=== PATIENT | female | born 1995 | race Caucasian/White ===

== ENCOUNTER → 2023-05-09 | Outpatient (CLI) | payer MEDICARE, OTHER ==
[2023-05-09 16:12] VITALS: BP 118/87; PULSE 102; TEMP 98.2; BMI 70.2
--- NOTE | 2023-05-09 16:27 | P.HPBAR ---
Bariatric H&P - History & Physicial H&P Date: 05/09/23 History & Physicial: Visit/CC: new patient Patient initial contact: Initial weight: Initial weight in pounds: Height: 5 ft 5 in Initial BMI: Last weight: Current weight: 191.371 kg Current weight in pounds: 421.90 Current BMI: 70.2 Mcdavid body weight (based on NIH guidelines): 56.699 kg Excess body weight loss: The patient is a 28 year-old F who presents for Bariatric Assessment. DATE OF SERVICE: 05/09/23 REASON FOR CONSULTATION: Initial bariatric evaluation. HISTORY OF PRESENT ILLNESS: Nano Dodd is a 28-year-old female who comes with lifelong morbid obesity. She comes in looking into the gastric bypass. She was at [facility]. She wants to lose weight. She lost 60 pounds at [facility] and was scheduled for surgery and stopped due COVID. She has lost vision in her eye. She was living in [facility] and moved to the [facility]. Her highest weight is 450 pounds and down to 380 pounds 3 years ago. She is starting all over. She presents for the first time in consultation for weight loss management. At height of 5 feet 5 inches, her ideal body weight is 149 pounds. She comes in 422 pounds. Her body mass index is 70.2. Her highest weight is 450 pounds and body mass index 75.0. She is 273 pounds overweight. PAST MEDICAL HISTORY: 1. Morbid obesity due to excess calories 2. Body mass index of 70.2 3. Osteoarthritis of the knees. 4. Osteoarthritis of the lower back. 5. Depressive disorder PAST SURGICAL HISTORY: 1. Bilateral eye surgeries HOME MEDICATIONS: Home Medications Medication Instructions Recorded Confirmed Ibuprofen [Motrin] 800 mg PO Q8H PRN 05/09/23 05/09/23 Vilazodone HCl 20 mg PO DAILY 05/09/23 05/09/23 ALLERGIES: Allergies Allergy/AdvReac Type Severity Reaction Status Date / Time duloxetine AdvReac Unknown Verified 05/09/23 16:00 SOCIAL HISTORY: Past tobacco use. FAMILY HISTORY: No family history of ulcerative colitis disease or Crohn's disease. Family history of morbid obesity. No lupus in the family. No reports of stomach or esophageal cancer. REVIEW OF ORGAN SYSTEMS: CONSTITUTIONAL: At height of 5 feet 5 inches, her ideal body weight is 149 pounds. She comes in 422 pounds. Her body mass index is 70.2. Her highest weight is 450 pounds and body mass index 75.0. She is 273 pounds overweight. HEENT: Denies any active troubles with vision or hearing. ENDOCRINE: Denies diabetes. No hypothyroidism. CARDIOVASCULAR: Denies past reports of palpitations or heart attacks or chest pain. Has hypertensive heart disease. RESPIRATORY: Has daytime somnolence. Has asthma. Denies chronic obstructive pulmonary disease. GASTROINTESTINAL: Denies any bright red blood per rectum. No diarrhea. No constipation. Has gastroesophageal reflux disease. GENITOURINARY: Denies bladder urgency. No recent blood in urine MUSCULOSKELETAL: Has lower back pain and joint pain. Has osteoarthritis of the knees. History of bilateral lower extremity edema. NEURO: No headaches. No seizure disorders. PSYCH: Has depression. No suicidal ideation. RHEUMATOLOGIC: No lupus. No rheumatoid arthritis. HEMATOLOGIC: Denies any abnormal bleeding or bruising. SKIN: No rash. No skin cancer. PHYSICAL EXAM: VITAL SIGNS: Height 5 foot 5 inches, weight 422 pounds. BMI 70.2 Vital Signs Temp 98.2 F 05/09/23 15:57 Pulse 102 H 05/09/23 15:57 Resp BP 118/87 05/09/23 16:10 Pulse Ox FiO2 GENERAL: Well-developed in no acute distress. HEENT: No scleral icterus. Extraocular movements grossly intact. Hears conversational speech. No nasal drainage. NECK: Supple without lymphadenopathy. CHEST: Nonlabored respirations with equal bilateral excursions. CARDIOVASCULAR: Tachycardic. Distal 2+ pulses. ABDOMEN: Obese, soft, nontender, nondistended. MUSCULOSKELETAL: No clubbing, cyanosis. Gross strength 5/5 distal lower extremities. NEURO: No focal or lateralizing signs. Cranial nerves 2 through 12 grossly within normal limits. PSYCH: Appropriate affect. Alert and oriented to person, place and time. SKIN: Good skin turgor. Well perfused. ASSESSMENT: 1. Morbid obesity due to excess calories 2. Body mass index of 70.2 3. Osteoarthritis of the knees. 4. Osteoarthritis of the lower back. 5. Depressive disorder PLAN: 1. Surgical options including band, gastric bypass, sleeve gastrectomy were described in detail. Alternatives such as gastric balloon including duodenal switch were described. She is looking into the gastric bypass. 2. The [place] [facility]ariat[facility] surgical collaborative data and outcomes available 3. Recommend a bariatric metabolic panel to evaluate for micro- including macronutrient deficiencies. 4. For history of daytime somnolence, recommend evaluation and treatment for sleep apnea. 5. Dietary surveillance and counseling was reviewed. Increased protein intake over 65 grams daily advised. 6. Will need cardiac risk assessment. 7. Recommend medical risk assessment. 8. Psych assessment per insurance guidelines. 9. Recommend upper endoscopy. 10. Recommend 12-lead EKG. 11. Recommend esophagram 12. Recommend full urine metabolites testing Thank you for this consultation. Past Medical History Past Medical History: Osteoarthritis (OA) Additional Past Medical History / Comment(s): keratoconus irma eyes, SOB with activity History of Any Multi-Drug Resistant Organisms: None Reported Additional Past Surgical History / Comment(s): eye surgeries x 2 right eye, 1 left eye Past Anesthesia/Blood Transfusion Reactions: No Reported Reaction Additional Past Anesthesia/Blood Transfusion Reaction / Comm: woke up upset after first eye surgery Smoking Status: Former smoker Surgical - Exam Vital Signs Temp Pulse BP 98.2 F 102 H 169/105 05/09/23 15:57 05/09/23 15:57 05/09/23 15:57 Bariatric Checklist Checklist: Plan: Checklist: EGD: 1. Hiatal hernia: 2. H. Pylori: HgbA1c: Vitamin D: Smoking: Primary care physician referral: Dr. Russell Psychiatry clearance: Cardiology clearance: Sleep study: Diet journal: VTE risk score: VTE risk level: Rehab needs at discharge:
== END ==
LOC: BARWHC3 14:59
PROVIDERS: ATTEND Surgery Plastic and Reconstructive Surgery
DX: E66.01 Morbid (severe) obesity due to excess calories (principal); M17.0 Bilateral primary osteoarthritis of knee; M47.816 Spondylosis without myelopathy or radiculopathy, lumbar region; F32.A Depression, unspecified; Z68.45 Body mass index [BMI] 70 or greater, adult; Z88.8 Allergy status to other drugs, medicaments and biological substances; Z87.891 Personal history of nicotine dependence
CPT/HCPCS: 99202

== ENCOUNTER → 2023-06-01 | Outpatient (CLI) | payer OTHER ==
[2023-06-01 10:13] LABS: INR 0.9 (<1.2); Partial Thromboplastin Time 28.9 sec (22.0-30.0); Prothrombin Time 10.1 sec (10.0-12.5)
[2023-06-01 16:03] LABS: HCT 36.4 % (37.2-46.3); HGB 11.4 g/dL (12.0-15.0); MCH 25.2 pg (27.0-32.0); MCHC 31.3 g/dL (32.0-37.0); MCV 80.5 FL (80.0-97.0); Mean Platelet Volume 9.1 FL (9.5-12.2); NRBC Per 100 WBC 0 X 10*3/uL (0.00-0.01); Platelet Count 439 X 10*3/uL (140-440); RBC 4.52 X 10*6/uL (4.10-5.20); RDW 14.2 % (11.5-14.5); WBC 7.51 X 10*3/uL (4.50-10.00)
[2023-06-01 16:34] LABS: Prealbumin 16.3 mg/dL (18.0-42.0)
[2023-06-01 16:46] LABS: % Iron Saturation 12.61 (12.00-45.00); ALT 21 U/L (8-44); AST 14 U/L (13-35); Albumin 4.2 g/dL (3.8-4.9); Albumin/Globulin Ratio 1.56 Ratio (1.60-3.17); Alkaline Phosphatase 65 U/L (41-126); Blood Urea Nitrogen 16.2 mg/dL (9.0-27.0); Calcium 9.8 mg/dL (8.7-10.3); Carbon Dioxide 21.3 mmol/L (21.6-31.8); Chloride 102 mmol/L (96-109); Chol/HDL Ratio 2.97 Ratio; Ferritin 37.7 ng/mL (10.0-291.0); Globulin 2.7 g/dL (1.6-3.3); Glucose 88 mg/dL (70-110); Iron 45 UG/DL (50-170); LDL Cholesterol,Calculated 60.2 mg/dL (0.0-131.0); Magnesium 1.8 mg/dL (1.5-2.4); Phosphorus 3.5 mg/dL (2.4-5.1); Potassium 4.3 mmol/L (3.5-5.5); Sodium 136 mmol/L (135-145); Total Bilirubin 0.6 mg/dL (0.3-1.2); Total Iron Binding Capacity 357 UG/DL (228-460); Total Protein 6.9 g/dL (6.2-8.2); VLDL Calculation 14.74 mg/dL (5.00-40.00)
== END | disposition home or self-care (01) ==
LOC: LABWHC1 08:59
PROVIDERS: ATTEND Surgery Plastic and Reconstructive Surgery
DX: E66.01 Morbid (severe) obesity due to excess calories (principal); E89.1 Postprocedural hypoinsulinemia; D50.8 Other iron deficiency anemias; K91.2 Postsurgical malabsorption, not elsewhere classified; E44.0 Moderate protein-calorie malnutrition; E44.1 Mild protein-calorie malnutrition; E45 Retarded development following protein-calorie malnutrition; E46 Unspecified protein-calorie malnutrition; E55.9 Vitamin D deficiency, unspecified; K74.1 Hepatic sclerosis; N19 Unspecified kidney failure; T56.894A Toxic effect of other metals, undetermined, initial encounter; K50.90 Crohn's disease, unspecified, without complications; I45.10 Unspecified right bundle-branch block
CPT/HCPCS: 84255; 84134; 84425; 80061; 80053; 82607; 82728; 82525; 82746; 83540; 83550; 83735; 84100; 84443; 84590; 84630; 85027; 85610; 85730; 82306; 83970; 83036; 80307; 93005; G0480; 80323

== ENCOUNTER 2023-06-18 07:26 | Day surgery (SDC) | payer OTHER ==
--- NOTE | 2023-06-18 07:33 | P.GSHP ---
History of Present Illness H&P Date: 06/18/23 CHIEF COMPLAINT: GERD HISTORY OF PRESENT ILLNESS: The patient is a 28-year-old female who presents reports gastroesophageal reflux disease. Upper endoscopy was offered for further evaluation and management. PAST MEDICAL HISTORY: Please see list. PAST SURGICAL HISTORY: Please see list. MEDICATIONS: Please see list. ALLERGIES: Please see list. SOCIAL HISTORY: No illicit drug use FAMILY HISTORY: No reports of Crohn disease or ulcerative colitis. REVIEW OF ORGAN SYSTEMS: CONSTITUTIONAL: No reports of fevers or chills. GI: Denies any blood in stools or constipation. PHYSICAL EXAM: VITAL SIGNS: Stable GENERAL: Well-developed and pleasant in no acute distress. HEENT: No scleral icterus. Extraocular movements grossly intact. Moist buccal mucosa. NECK: Supple without lymphadenopathy. CHEST: Unlabored respirations. Equal bilateral excursions. CARDIOVASCULAR: Regular rate and rhythm. Distal 2+ pulses. ABDOMEN: Soft, nondistended. MUSCULOSKELETAL: No clubbing, cyanosis, or edema. ASSESSMENT: 1. Gastroesophageal reflux disease PLAN: 1. Recommend proceeding with an upper endoscopy Past Medical History Past Medical History: Osteoarthritis (OA) Additional Past Medical History / Comment(s): keratoconus irma eyes, SOB with activity History of Any Multi-Drug Resistant Organisms: None Reported Additional Past Surgical History / Comment(s): eye surgeries x 2 right eye, 1 left eye. CORNEAL TRANSPLANT. BLURRED VISION IN RIGHT EYE. Past Anesthesia/Blood Transfusion Reactions: No Reported Reaction Additional Past Anesthesia/Blood Transfusion Reaction / Comment(s): woke up upset after first eye surgery Past Psychological History: Anxiety, Bipolar, Depression, PTSD Smoking Status: Former smoker Past Alcohol Use History: None Reported Past Drug Use History: None Reported Medications and Allergies Home Medications Medication Instructions Recorded Confirmed Type Ibuprofen [Motrin] 800 mg PO Q8H PRN 05/09/23 06/14/23 History Semaglutide [Wegovy] 0.25 mg SQ FR 06/14/23 06/14/23 History Allergies Allergy/AdvReac Type Severity Reaction Status Date / Time duloxetine AdvReac Unknown Verified 06/14/23 09:13
[2023-06-18 08:02] VITALS: TEMP 97.1
[2023-06-18] MEDS ORDERED: LIDOCAINE 1% INJ 10MG/ML (20 ML MDV) ONE (08:04)
[2023-06-18] MEDS ORDERED: KETAMINE HCL IN 0.9 % NACL 50 MG/5 ML SYRINGE ONE (08:04)
[2023-06-18] MEDS ORDERED: PROPOFOL 10 MG/ML 20 ML VIAL IV ONE (08:04)
[2023-06-18] MEDS ORDERED: MIDAZOLAM 2 MG/2 ML VIAL ONE (08:04)
[2023-06-18 08:05] LABS: Glucose,Whole Blood 84 mg/dL (70-110)
[2023-06-18] MEDS: LACTATED RINGERS 1,000 ML IV SCH (08:05)
--- NOTE | 2023-06-18 08:25 | P.PCN ---
Date of Procedure: 06/18/23 Description of Procedure: PREOPERATIVE DIAGNOSIS: Gastroesophageal reflux disease. Morbid obesity. POSTOPERATIVE DIAGNOSIS: Gastroesophageal reflux disease. Morbid obesity. Gastritis. Gastroparesis OPERATION: Esophagogastroduodenoscopy with biopsies along the esophagus, antrum and duodenum SURGEON: Kia Hines MD ANESTHESIA: MAC. INDICATIONS: The patient is a 28-year-old female who presents with reflux disease. Benefits and risks of the procedure were described. Informed consent was obtained. DESCRIPTION: The patient was brought into the endoscopy suite and laid in the left lateral decubitus position. An Olympus gastroscope was passed along the posterior oropharynx down to the distal esophagus where the squamocolumnar junction was encountered at 37 cm from the incisors. The stomach was entered and no bile reflux was found. Additional findings are listed below. Biopsies with cold f orceps were obtained of the antrum. The first through third portion of the duodenum was examined. Retroflexion of the scope confirmed Hill grade 1 lower esophageal valve. The squamocolumnar junction demonstrated LA grade B erosive esophagitis. The stomach was desufflated. The patient tolerated the procedure well. FINDINGS: Squamocolumnar junction 38 cm from the incisors. Diaphragmatic hiatus at 38 cm. Hill grade 1 lower esophageal valve. LA grade B erosive esophagitis. Biopsies obtained Biopsies obtained of the duodenum. Chronic gastritis with biopsies obtained. Retained food within the stomach, gastroparesis RECOMMENDATIONS: Upper endoscopy as needed. She is on with [facility], recommend discontinuing medication one week prior to weight loss surgery Plan - Discharge Summary Discharge Rx Participant: No New Discharge Prescriptions: Continue Ibuprofen [Motrin] 800 mg PO Q8H PRN PRN Reason: Pain Semaglutide [Wegovy] 0.25 mg SQ FR Discharge Medication List Ibuprofen [Motrin] 800 mg PO Q8H PRN 05/09/23 [History] Semaglutide [Wegovy] 0.25 mg SQ FR 06/14/23 [History] [facility]Ref[facility] [place] [facility] Patient Instructions/Handouts: GERD (Gastroesophageal Reflux Disease) (DC) Discharge Disposition: HOME SELF-CARE
[2023-06-18 08:36] VITALS: RESP 16
[2023-06-18 09:09] VITALS: BP 125/88; PULSE 65
== END 2023-06-18 09:06 | disposition home or self-care (01) ==
LOC: ORWHC2ENDO 07:26
PROVIDERS: ATTEND Surgery Plastic and Reconstructive Surgery
DX: K29.50 Unspecified chronic gastritis without bleeding (principal); K21.00 Gastro-esophageal reflux disease with esophagitis, without bleeding; K31.84 Gastroparesis; E66.01 Morbid (severe) obesity due to excess calories; F31.9 Bipolar disorder, unspecified; F41.9 Anxiety disorder, unspecified; F43.10 Post-traumatic stress disorder, unspecified; M19.90 Unspecified osteoarthritis, unspecified site; Z87.891 Personal history of nicotine dependence; Z88.8 Allergy status to other drugs, medicaments and biological substances; Z79.899 Other long term (current) drug therapy
CPT/HCPCS: 81025; 43239; J2250; J2001; J2704; 88305

== ENCOUNTER → 2023-07-02 | Outpatient (CLI) | payer OTHER ==
[2023-07-02 14:52] VITALS: BMI 68.5
== END | disposition home or self-care (01) ==
LOC: BARWHC3 11:52
PROVIDERS: ATTEND Surgery Plastic and Reconstructive Surgery
DX: E66.01 Morbid (severe) obesity due to excess calories (principal); Z71.3 Dietary counseling and surveillance; Z88.5 Allergy status to narcotic agent
CPT/HCPCS: 97804; G0463; 99211

== ENCOUNTER → 2023-07-04 | Outpatient (CLI) | payer OTHER | END | disposition home or self-care (01) | LOC: LABPAT 14:43 | PROVIDERS: ATTEND Surgery Plastic and Reconstructive Surgery | DX: Z01.818 Encounter for other preprocedural examination (principal); I44.0 Atrioventricular block, first degree; I45.10 Unspecified right bundle-branch block | CPT/HCPCS: 93005 ==

== ENCOUNTER → 2023-08-28 | Outpatient (CLI) | payer OTHER ==
--- NOTE | 2023-08-29 07:30 | CA ---
Transthoracic Echo Report Name: Nano Dodd Age: 28 Gender: F : 1995 Exam Date: 08/28/2023 17:09 Exam Location: [place] [facility] Ht (in): 65 Wt (lb): 401 Ordering Physician: Frederick Wills DO ([email or web address]) Attending/Referring Phys: Katherine Farr [facility] Social Sciences Department Chair Neda Tompkins RDCS Procedure CPT: Indications: abnormal EKG R94.31 Cardiac Hx: Technical Quality: Poor Contrast 1: Total Dose (mL): Contrast 2: Total Dose (mL): MEASUREMENTS (Male / Female) Normal Values 2D ECHO LV Diastolic Diameter PLAX 4.7 cm 4.2 - 5.9 / 3.9 - 5.3 cm LV Systolic Diameter PLAX 3.1 cm IVS Diastolic Thickness 1.5 cm 0.6 - 1.0 / 0.6 - 0.9 cm LVPW Diastolic Thickness 1.4 cm 0.6 - 1.0 / 0.6 - 0.9 cm LV Relative Wall Thickness 0.6 RV Internal Dim ED PLAX 2.8 cm LA Systolic Diameter LX 3.5 cm 3.0 - 4.0 / 2.7 - 3.8 cm M-MODE Aortic Root Diameter MM 3.2 cm MV E Point Septal Separation 0.5 cm DOPPLER AV Peak Velocity 130.1 cm/s AV Peak Gradient 6.8 mmHg MV Area PHT 3.2 cm??? Mitral E Point Velocity 85.4 cm/s Mitral A Point Velocity 70.6 cm/s Mitral E to A Ratio 1.2 MV Deceleration Time 240.1 ms TR Peak Velocity 251.8 cm/s TR Peak Gradient 25.4 mmHg Right Ventricular Systolic Press 29.4 mmHg FINDINGS Left Ventricle Left ventricular ejection fraction is estimated at 55-60 %. Left ventricular cavity size normal. Moderately increased septal wall thickness. Moderately increased posterior wall thickness. Normal left ventricular wall motion. Right Ventricle Normal right ventricular size and function. Right ventricular systolic pressure within normal limits. Right Atrium Normal right atrial size. No spontaneous contrast in the right atrium. Left Atrium Normal left atrial size. No left atrial thrombus or mass present. No spontaneous echo contrast seen in the left atrium. Mitral Valve Structurally normal mitral valve. No mitral stenosis, regurgitation or prolapse. Aortic Valve Trileaflet aortic valve. No aortic valve stenosis or regurgitation. Tricuspid Valve Structurally normal tricuspid valve. No tricuspid prolapse. No tricuspid stenosis. Mild tricuspid regurgitation. Pulmonic Valve Pulmonic valve not well visualized. No pulmonic regurgitation. Pericardium No pericardial effusion. No pleural effusion. Aorta Normal size aortic root and proximal ascending aorta. CONCLUSIONS Technically very difficult study for interpretation was poorly visualized endocardial and poorly visualized intracardiac valves Normal LV systolic function Previewed by: Dr. Tom Lowe MD (Electronically Signed) Final Date: 29 Aug 2023 07:30
== END | disposition home or self-care (01) ==
LOC: RADECHMAIN 16:23
PROVIDERS: ATTEND Internal Medicine
DX: Z01.810 Encounter for preprocedural cardiovascular examination (principal); R94.31 Abnormal electrocardiogram [ECG] [EKG]
CPT/HCPCS: 93306

== ENCOUNTER → 2023-09-19 | Outpatient (CLI) | payer OTHER ==
--- NOTE | 2023-09-19 16:20 | P.BASOAP ---
Subjective Progress Note Date: 09/19/23 She has lost weigh with [facility] weight loss since April. Plan for 20 pound weight loss. Okay to take medication next sunday. 2 week diet described. Consent signed Objective - Vital Signs Vital signs: Vital Signs Temp 98 F 09/19/23 15:44 Pulse 76 09/19/23 15:44 Resp 16 09/19/23 15:44 BP 143/87 09/19/23 15:44 Pulse Ox FiO2 Intake & Output 09/18/23 09/19/23 09/19/23 18:59 06:59 18:59 Weight 176.901 kg Assessment/Plan Plan: Date: 09/19/23 Initial Weight: 191.218 kg Initial BMI: 70.1 Current Weight: 176.901 kg Current BMI: 64.9 Type of Surgery: Total Volume in Band: Previous Volume: Volume Removed: Volume Added: Band Size:
[2023-09-19 16:25] VITALS: BP 143/87; PULSE 76; RESP 16; TEMP 98; BMI 64.9
== END ==
LOC: BARWHC3 15:26
PROVIDERS: ATTEND Surgery Plastic and Reconstructive Surgery
DX: E66.01 Morbid (severe) obesity due to excess calories (principal); Z87.891 Personal history of nicotine dependence; Z88.8 Allergy status to other drugs, medicaments and biological substances; Z68.44 Body mass index [BMI] 60.0-69.9, adult
CPT/HCPCS: 99211

== ENCOUNTER → 2023-09-27 | Outpatient (CLI) | payer OTHER ==
[2023-09-27 18:05] LABS: Basophils # (A) 0.04 X 10*3/uL (0.00-0.10); Basophils % (A) 0.5 %; Eosinophils # (A) 0.09 X 10*3/uL (0.04-0.35); HCT 35.4 % (37.2-46.3); HGB 11.4 g/dL (12.0-15.0); Lymphocytes # (A) 2.35 X 10*3/uL (0.90-5.00); Lymphocytes % (A) 26.5 %; MCHC 32.2 g/dL (32.0-37.0); MCV 80.6 FL (80.0-97.0); Mean Platelet Volume 9.5 FL (9.5-12.2); Monocytes # (A) 0.52 X 10*3/uL (0.20-1.00); Monocytes % (A) 5.9 %; NRBC Per 100 WBC 0 X 10*3/uL (0.00-0.01); Neutrophils # (A) 5.86 X 10*3/uL (1.80-7.70); Neutrophils % (A) 65.9 %; Platelet Count 443 X 10*3/uL (140-440); RBC 4.39 X 10*6/uL (4.10-5.20); RDW 13.4 % (11.5-14.5); WBC 8.88 X 10*3/uL (4.50-10.00)
[2023-09-27 21:01] LABS: ALT 22 U/L (8-44); AST 16 U/L (13-35); Albumin 4.2 g/dL (3.8-4.9); Albumin/Globulin Ratio 1.45 Ratio (1.60-3.17); Alkaline Phosphatase 60 U/L (41-126); BUN/Creat Ratio 30.43 Ratio (12.00-20.00); Blood Urea Nitrogen 21.3 mg/dL (9.0-27.0); Calcium 9.6 mg/dL (8.7-10.3); Carbon Dioxide 22.6 mmol/L (21.6-31.8); Chloride 105 mmol/L (96-109); Globulin 2.9 g/dL (1.6-3.3); Glucose 88 mg/dL (70-110); Potassium 4.3 mmol/L (3.5-5.5); Sodium 139 mmol/L (135-145); Total Bilirubin 0.6 mg/dL (0.3-1.2); Total Protein 7.1 g/dL (6.2-8.2)
== END | disposition home or self-care (01) ==
LOC: LABPAT 13:11
PROVIDERS: ATTEND Surgery Plastic and Reconstructive Surgery
DX: Z01.812 Encounter for preprocedural laboratory examination (principal)
CPT/HCPCS: 36415; 80053; 85025; 86850; 86900; 86901

== ENCOUNTER 2023-10-01 06:45 | Inpatient (IN) | payer OTHER ==
[~2023-10-01 06:45] MED LIST: HYDROmorphone 0.5 MG/0.5 ML SYRINGE IVP PRN; MIDAZOLAM 2 MG/2 ML VIAL IV PRN; ONDANSETRON 4 MG/2 ML VIAL IVP PRN; PANTOPRAZOLE 40 MG/10 ML VIAL IVP PRN; fentaNYL (PF) 50 MCG/ML 2 ML AMP IVP PRN
--- NOTE | 2023-10-01 07:53 | P.GSHP ---
History of Present Illness H&P Date: 10/01/23 CHIEF COMPLAINT: Morbid obesity HISTORY OF PRESENT ILLNESS: Nano Dodd is a 28-year-old female who comes with lifelong morbid obesity. She comes in looking into the gastric bypass. She has completed medical risk assessment including bariatric risk assessment. Her highest weight is 450 pounds and down to 380 pounds 3 years ago. At height of 5 feet 5 inches, her ideal body weight is 149 pounds. She was 422 pounds. Her body mass index is 70.2. Her highest weight is 450 pounds and body mass index 75.0. She was 273 pounds overweight. Lifetime weight loss 32 pounds. PAST MEDICAL HISTORY: 1. Morbid obesity due to excess calories 2. Body mass index of 70.2 3. Osteoarthritis of the knees. 4. Osteoarthritis of the lower back. 5. Depressive disorder PAST SURGICAL HISTORY: 1. Bilateral eye surgeries HOME MEDICATIONS: Home Medications Medication Instructions Recorded Confirmed Ibuprofen [Motrin] 800 mg PO Q8H PRN 05/09/23 05/09/23 Vilazodone HCl 20 mg PO DAILY 05/09/23 05/09/23 ALLERGIES: Allergies Allergy/AdvReac Type Severity Reaction Status Date / Time duloxetine AdvReac Unknown Verified 05/09/23 16:00 SOCIAL HISTORY: Past tobacco use. FAMILY HISTORY: No family history of ulcerative colitis disease or Crohn's disease. Family history of morbid obesity. No lupus in the family. No reports of stomach or esophageal cancer. REVIEW OF ORGAN SYSTEMS: CONSTITUTIONAL: At height of 5 feet 5 inches, her ideal body weight is 149 pounds. She was 422 pounds. Her body mass index is 70.2. Her highest weight is 450 pounds and body mass index 75.0. She is 273 pounds overweight. HEENT: Denies any active troubles with vision or hearing. ENDOCRINE: Denies diabetes. No hypothyroidism. CARDIOVASCULAR: Denies past reports of palpitations or heart attacks or chest pain. Has hypertensive heart disease. RESPIRATORY: Has daytime somnolence. Has asthma. Denies chronic obstructive pulmonary disease. GASTROINTESTINAL: Denies any bright red blood per rectum. No diarrhea. No constipation. Has gastroesophageal reflux disease. GENITOURINARY: Denies bladder urgency. No recent blood in urine MUSCULOSKELETAL: Has lower back pain and joint pain. Has osteoarthritis of the knees. History of bilateral lower extremity edema. NEURO: No headaches. No seizure disorders. PSYCH: Has depression. No suicidal ideation. RHEUMATOLOGIC: No lupus. No rheumatoid arthritis. HEMATOLOGIC: Denies any abnormal bleeding or bruising. SKIN: No rash. No skin cancer. PHYSICAL EXAM: VITAL SIGNS: Height 5 foot 5 inches, weight 370 pounds. BMI 64.9 GENERAL: Well-developed in no acute distress. HEENT: No scleral icterus. Extraocular movements grossly intact. Hears conversational speech. No nasal drainage. NECK: Supple without lymphadenopathy. CHEST: Nonlabored respirations with equal bilateral excursions. CARDIOVASCULAR: Tachycardic. Distal 2+ pulses. ABDOMEN: Obese, soft, nontender, nondistended. MUSCULOSKELETAL: No clubbing, cyanosis. Gross strength 5/5 distal lower extremities. NEURO: No focal or lateralizing signs. Cranial nerves 2 through 12 grossly within normal limits. PSYCH: Appropriate affect. Alert and oriented to person, place and time. SKIN: Good skin turgor. Well perfused. ASSESSMENT: 1. Morbid obesity due to excess calories 2. Body mass index of 70.2 to 64.9 3. Osteoarthritis of the knees. 4. Osteoarthritis of the lower back. 5. Depressive disorder PLAN: 1. Surgical options including band, gastric bypass, sleeve gastrectomy were described in detail. Alternatives such as gastric balloon including duodenal switch were described. She is looking into the gastric bypass. Issac 2. The [place] [facility] Data was also reviewed with benefits and risks as described. 3. An 8 page second-generation bariatric consent form was reviewed in detail including potential of bleeding, infection, leaks, adequate weight loss, nutritional deficiencies which the patient demonstrated understanding of the risks. 4. A 2 week high-protein low caloric 800 kcal diet described to address hepatomegaly. 5. Preoperative labs including complete metabolic panel and CBC with type and screen recommended. 6. DVT prophylaxis per [place] [facility] collaborative. 7. Antibiotic prophylaxis. 8. She is elevated risk due to pre-existing history of tobacco abuse disorder including BMI of over 50 9. Inpatient hospitalization over 2 nights described Past Medical History Past Medical History: Osteoarthritis (OA) Additional Past Medical History / Comment(s): keratoconus irma eyes, SOB with activity History of Any Multi-Drug Resistant Organisms: None Reported Additional Past Surgical History / Comment(s): eye surgeries x 2 right eye, 1 left eye Past Anesthesia/Blood Transfusion Reactions: No Reported Reaction Additional Past Anesthesia/Blood Transfusion Reaction / Comment(s): woke up upset after first eye surgery Past Alcohol Use History: None Reported Medications and Allergies Home Medications Medication Instructions Recorded Confirmed Type Semaglutide [Wegovy] 0.25 mg SQ MO 06/14/23 09/26/23 History Allergies Allergy/AdvReac Type Severity Reaction Status Date / Time duloxetine AdvReac Unknown Verified 09/26/23 14:08
[2023-10-01] MEDS ORDERED: PANTOPRAZOLE 40 MG/10 ML VIAL IVP STA (07:55)
[2023-10-01] MEDS: IV FLUID CONTINUATION 1,000 ML IV ONE (08:15)
[2023-10-01] MEDS: LACTATED RINGERS 1,000 ML IV SCH (08:38)
[2023-10-01] MEDS: ONDANSETRON 4 MG/2 ML VIAL IVP ONE (08:38)
[2023-10-01] MEDS: CHLORHEXIDINE GLUCONATE 15 ML CUP MUCOUS MEM STA (08:38)
[2023-10-01] MEDS: DEXAMETHASONE SOD PHOSPHATE 4 MG/ML 1 ML VIAL IV ONE (08:38)
[2023-10-01] MEDS: LIDOCAINE 1% (10MG/ML) FOR IV START INTRADERMA PRN (08:39)
[2023-10-01] MEDS: ALVIMOPAN 12 MG CAPSULE PO PRN (08:40)
[2023-10-01] MEDS: ACETAMINOPHEN TAB 500 MG TAB PO PRN (08:40)
[2023-10-01] MEDS: HEPARIN SODIUM,PORCINE 5,000 UNIT/ML 1 ML VIAL SQ PRN (08:40)
--- NOTE | 2023-10-01 08:50 | P.HPADDEND ---
H&P Addendum H&P Addendum Date: 10/01/23 Patient did not achieve target weight loss of 5%. She is aware that surgery may be deferred or canceled pending results of her liver presence of severe hepatomegaly. Additionally, in the presence of severe intra-abdominal adhesions, patient opted for sleeve gastrectomy versus lysis of adhesions with return to the OR at a delayed fashion. Consent modified to reflect patient's wishes.
[2023-10-01] MEDS ORDERED: PROPOFOL 10 MG/ML 20 ML VIAL IV ONE (09:02)
[2023-10-01] MEDS ORDERED: HYDROmorphone (PF) 1 MG/ML ONE (09:02)
[2023-10-01] MEDS ORDERED: MIDAZOLAM 2 MG/2 ML VIAL ONE (09:02)
[2023-10-01] MEDS ORDERED: KETAMINE HCL IN 0.9 % NACL 50 MG/5 ML SYRINGE ONE (09:02)
[2023-10-01] MEDS ORDERED: SUCCINYLCHOLINE CHLORIDE 200 MG/10 ML VIAL IV ONE (09:02)
[2023-10-01] MEDS ORDERED: ONDANSETRON 4 MG/2 ML VIAL ONE (09:02)
[2023-10-01] MEDS ORDERED: ROCURONIUM 10 MG/ML (5 ML VIAL) IV ONE (09:02)
[2023-10-01] MEDS ORDERED: SUGAMMADEX SODIUM 200 MG/2 ML SDV IV ONE (09:02)
[2023-10-01] MEDS ORDERED: fentaNYL (PF) 50 MCG/ML 2 ML AMP ONE (09:02)
[2023-10-01] MEDS: ceFAZolin 3 GM in SODIUM CHLORIDE 0.9% 100 ML IVPB PRN (09:05)
[2023-10-01] MEDS: LIDOCAINE 2%-EPI 1:100,000 20 ML VIAL SQ ONE (09:41)
[2023-10-01] MEDS: LACTATED RINGERS 1,000 ML IV ONE (11:25)
[2023-10-01] MEDS ORDERED: NALOXONE 0.4 MG/ML 1 ML VIAL IV PRN (13:05)
--- NOTE | 2023-10-01 13:15 | P.OP ---
Date of Procedure: 10/01/23 Description of Procedure: SURGEON: FIDEL METCALF MD PREOPERATIVE DIAGNOSES: 1. Morbid obesity due to excess calories 2. Body mass index of 70.2 to 64.9 3. Osteoarthritis of the knees. 4. Osteoarthritis of the lower back. 5. Depressive disorder 6. Obstructive sleep apnea 7. Generalized anxiety disorder 8. Posttraumatic stress disorder 9. Depressive disorder 10. Bipolar disorder POSTOPERATIVE DIAGNOSES: 1. Morbid obesity due to excess calories 2. Body mass index of 70.2 to 64.9 3. Osteoarthritis of the knees. 4. Osteoarthritis of the lower back. 5. Depressive disorder 6. Obstructive sleep apnea 7. Generalized anxiety disorder 8. Posttraumatic stress disorder 9. Depressive disorder 10. Bipolar disorder 11. Hepatomegaly with fatty liver disease OPERATION: 1. Robotic assisted da Comfort Xi laparoscopic Epi-en-Y gastric bypass, 100 cm antecolic antegastric Epi limb, with 25 mm EEA. 2. Intraoperative esophagogastrojejunoscopy. ANESTHESIA: GETA and local ESTIMATED BLOOD LOSS: 20 mL SPECIMENS REMOVED: None. COMPLICATIONS: NONE. Operative Findings: 1. Biliopancreatic limb 50 cm 2. Bypass performed using 100 cm epi limb secondary to avoid increased tension at 150 cm. 3. Jejunojejunostomy defect closed using 2-0 V-LOC, green 4. Leak test negative with gastrojejunal anastomosis patent and hemostatic. 5. Reinforcement sutures were placed along the gastrojejunal anastomosis at 3:00, 6:00 and 9:00 and 12:00. INDICATIONS: Latia Dodd is a 28-year-old female who comes with lifelong morbid obesity. She comes in looking into the gastric bypass. She has completed medical risk assessment including bariatric risk assessment. Her highest weight is 450 pounds and down to 380 pounds 3 years ago. At height of 5 feet 5 inches, her ideal body weight is 149 pounds. She was 422 pounds. Her body mass index is 70.2. Her highest weight is 450 pounds and body mass index 75.0. She was 273 pounds overweight. Lifetime weight loss 32 pounds. A second-generation bariatric consent form was described in detail including the possibility of protein malnutrition, leaks, gastrojejunal stricture, venous thrombosis, need for further surgery for which she demonstrated understanding. Benefits and risks of the procedure were described at length. Informed consent was obtained. DESCRIPTION: The patient was brought into the operating room theater. She was placed supine. She had received heparin subcutaneously for DVT prophylaxis. Additionally Peridex oral solution as an oral decontaminant was placed per anesthesia. After general induction, the abdomen was prepped and draped in standard sterile fashion. Ioban draping was placed along the abdomen. Archer catheter was avoided. A robotic da Comfort Xi system was prepped and primed. Incisions were proposed at 15 cm from the xiphoid. Proposed port sites were marked with indelible marker along the anterior axillary line bilaterally, mid clavicular line bilaterally with each port marked 10 cm from each other. The robotic stapler port was marked for the right midclavicular line including along the left midclavicular line. A 5 mm 0 degrees laparoscopic trocar entry was performed along the left upper quadrant. The abdomen was insufflated to 15 mmHg pressure, which she tolerated well. Diagnostic laparoscopy demonstrated no injury to bowel, viscera, or mesentery. Hepatomegaly with fatty liver disease was found however the liver edge was sharp consistent with a 2-week high-protein low-carb diet. The subcutaneous tissue was moderately thick adding complexity to the case. An 8 mm camera port was placed left lateral to the umbilicus at the epigastrium, 15 cm distal to the xiphoid. Next, 12-mm robot stapler port was placed along the right mid abdomen. An 12 mm port was exchanged along the left upper quadrant. An 8 mm port was placed on the left lateral abdominal wall under direct visualization Please note that the ports were placed 18 to 20 cm away from the target anatomy of the stomach. Care was taken to check that each robotic arm was safely away from collision with the bed or the patient. At the epigastrium, a medium sized Mabel liver retractor was placed under direct visualization with the Iron Drapery Estimator placed under the right shoulder of the patient. The patient was repositioned in reverse Trendelenburg position at 21-degrees after lowering the bed. The robot was docked over the patient. Using grasper for arm 3, a grasper for arm 1, including vessel sealer for arm 4, the robotic system was docked and primed as described. Instruments were interchanged by the assistant unit forester including endoscissors, the needle route driver coin machines, and stapler. I had sat at the console. Next, the transverse mesocolon was reflected into the upper abdomen for the jejunojejunostomy portion of the case. The ligament of Treitz was identified and measured 60 cm antegrade and marked using 3-0 Silk. The jejunum was divided at the 50 cm point using 60-mm blue loads above the suture measurement. The biliopancreatic limb was held in place. The Epi limb was measured 100 cm in an antegrade fashion to avoid tension along the proposed gastrojejunal anastomosis. At 100 cm along the anti-mesenteric border of the Epi limb, a jejunojejunostomy was proposed whereby enterotomies were created along the biliopancreatic limb including the Epi limb using a Bovie cautery. A stay suture of 3-0 Slik was placed to align and create the anastomosis. The enterotomies along the anti- mesenteric borders were created followed by unidirectional fire from the patient's right side using 60 mm white loads Smart technology robotic stapler. The jejunojejunostomy was found to be hemostatic. The enterotomy was closed after horizontal mattress stitch of 3-0 silk used to elevate the enterotomy followed by closure with the robotic stapler blue load. The jejunal limb was temporarily tacked along the left upper quadrant. Attention was now brought to the creation of the gastrojejunostomy. Along the lesser curvature of the stomach, dissection was made along the retrogastric space to allow first firing of the robotic staple. Total of two jose juan of green loads and blue loads of 60 mm staplers were used to divide the stomach to create the gastric pouch. The patient was then prepared for placement of a Orvil. A 25-mm Orvil was selected for placement by the nurse mop worker. The Orvil tubing was placed anterior to the staple line of the gastric pouch and brought out through the left inferior lateral port. I re-scrubbed into the case. The robotic arms were temporarily undocked. The Orvil was then carefully and successfully navigated with the help of the nurse mop worker into the gastric pouch. The sutures were identified and divided. The tubing was from the 25 mm anvil. As the Orvil had been placed, the jejunal limb was brought proximally into the upper abdomen. No torsion was found upon the Epi limb. No tension was identified as the limb was brought along the upper abdomen. The jejunal limb was previously opened using hook cautery. The 25-mm EEA stapler was brought through the left anterior lateral port site from the left side. The EEA stapler was brought through the open jejunal limb and its needle was deployed at the antimesenteric border where the anvil were mated for approximately 1 minute upon firing. The stapler was removed after irrigating the shaft of the instrument with warm normal saline. Donuts were found to be intact and on both sides. The da Comfort Xi robot arms were then re-docked. I sat at the console. The open jejunal limb defect was closed using 60 mm blue loads after releasing any tension from the blind jejunal limb. No redundancy was present for jejunal limb. The transverse mesocolon was divided for the epi limb. Reinforcement sutures were placed along the gastrojejunal anastomosis and placed along the 3:00, 6:00 and 9:00, 12:00 o'clock position using 3-0 Vicryl. The Caraballo defect was obliterated by omental fat and jejunojejunostomy mesenteric defect was closed using 2-0 V LOC, green. I then went to the head of the bed to perform the esophagogastrojejunoscopy and a leak test. An Olympus gastroscope was passed alongthe posterior oropharynx which was unremarkable for any injury to the vocal cords. The scope was passed down to the proximal portion of the pouch, whereby no active bleeding was encountered. Excellent visualization of the gastrojejunostomy anastomosis, including the Epi limb was encountered with endoscopic image obtained. The anastomosis was found to be patent with minimal active bleeding. Blood clots was suctioned from the gastric pouch. Residual blood was suctioned from the gastric pouch. The gastrointestinal tract was desufflated. No evidence of intraoperative leak was encountered as the gastric pouch and anastomosis were submerged under normal saline solution. The robot was then undocked. I then went back to the bedside of the patient, whereby with coordinated effort of the assistant unit forester, irrigation was aspirated from the upper abdominal cavity. Tisseel was placed circumferentially over the anastomosis of the gastrojejunostomy. The fascial defect of the EEA stapler was closed using Kraig Carlin and 0 Vicryl. All instruments and pneumoperitoneum were evacuated from the abdominal cavity. The port correlating with the EEA stapler device was cleansed with normal saline solution and hydrogen peroxide. The rest of incisions were reapproximated using 4-0 Monocryl in an interrupted subcuticular fashion. Local anesthetic was infiltrated along the skin for postop analgesia. Liquid glue was applied to the skin. OptiFoam dressing was placed along the EEA stapler site. At the end of the procedure, needle, sponge and instrument count had been verified correct by the fire protection equipment technician. The patient had tolerated the procedure well and was extubated and taken to the postanesthesia unit in stable condition.
[2023-10-01] MEDS ORDERED: TRIMETHOBENZAMIDE 100 MG/ML 2 ML VIAL IM PRN (13:18)
[2023-10-01] MEDS: ALBUTEROL NEBULIZED 2.5 MG/3 ML INHALATION SCH (16:45)
[2023-10-01] MEDS: 0.9% NACL WITH KCL 20 MEQ/L 1,000 ML IV SCH (17:39)
[2023-10-01] MEDS: SCOPOLAMINE 1 MG/72 HR PATCH TRANSDERM STA (17:39)
[2023-10-01] MEDS: METOCLOPRAMIDE 5 MG/ML 2 ML VIAL IVP SCH (17:39)
[2023-10-01] MEDS: fentaNYL PCA 500 MCG/50 ML BAG IV SCH (18:17)
[2023-10-01] MEDS: HEPARIN SODIUM,PORCINE 5,000 UNIT/ML 1 ML VIAL SQ SCH (18:37)
[2023-10-01] MEDS: ONDANSETRON 4 MG/2 ML VIAL IVP SCH (18:38)
[2023-10-01] MEDS: SIMETHICONE 40 MG/0.6 ML DROPS 2,000 MG/30 ML BOTTLE PO SCH (20:26)
[2023-10-01] MEDS: PANTOPRAZOLE 40 MG/10 ML VIAL IVP SCH (20:29)
[2023-10-01] MEDS: HYDROmorphone 1 MG/ML 1 ML SYRINGE IVP PRN (22:29)
[2023-10-02 08:41] LABS: Basophils # (A) 0.02 X 10*3/uL (0.00-0.10); Basophils % (A) 0.1 %; Eosinophils # (A) 0 X 10*3/uL (0.04-0.35); Eosinophils % (A) 0 %; HCT 35.1 % (37.2-46.3); HGB 11.4 g/dL (12.0-15.0); Lymphocytes # (A) 1.13 X 10*3/uL (0.90-5.00); Lymphocytes % (A) 6.4 %; MCH 25.7 pg (27.0-32.0); MCHC 32.5 g/dL (32.0-37.0); MCV 79.1 FL (80.0-97.0); Mean Platelet Volume 9.3 FL (9.5-12.2); Monocytes # (A) 1.24 X 10*3/uL (0.20-1.00); NRBC Per 100 WBC 0 X 10*3/uL (0.00-0.01); Neutrophils # (A) 15.21 X 10*3/uL (1.80-7.70); Neutrophils % (A) 85.9 %; Platelet Count 516 X 10*3/uL (140-440); RBC 4.44 X 10*6/uL (4.10-5.20); RDW 13.9 % (11.5-14.5)
[2023-10-02 09:09] LABS: Blood Urea Nitrogen 13.7 mg/dL (9.0-27.0); Carbon Dioxide 19.9 mmol/L (21.6-31.8); Chloride 104 mmol/L (96-109); Phosphorus 3.7 mg/dL (2.4-5.1); Sodium 136 mmol/L (135-145)
[2023-10-02 09:10] LABS: Calcium 9.1 mg/dL (8.7-10.3)
[2023-10-02 11:11] VITALS: BMI 63.2
[2023-10-02] MEDS: 0.9% NACL WITH KCL 20 MEQ/L 1,000 ML IV SCH (12:03)
--- NOTE | 2023-10-02 12:11 | FL ---
SINGLE CONTRAST UPPER GI EXAMINATION: CLINICAL HISTORY: 28-year-old female post bariatric surgery, Jemima-en-Y gastric bypass TECHNIQUE: Single contrast exam performed with 50 ml Isovue-370 contrast. DAP: 405.52 mGycm2 FLUORO TIME: 46 SECONDS Total images: 20 FINDINGS: The patient swallowed oral contrast without difficulty or delay. Esophageal peristalsis and motility are within normal limits. There is prompt passage of contrast from the esophagus into the stomach a nd then across the gastrojejunostomy into jejunal loops. There is no evidence of contrast extravasati on to suggest leak. Of postsurgical free air seen. IMPRESSION: No evidence of leak or significant obstruction status post Jemima-en-Y gastric bypass.
[2023-10-02] MEDS: ACETAMINOPHEN IV (For NPO) 1,000 MG in EMPTY BAG 1 BAG IVPB SCH (20:56)
[2023-10-02] MEDS: ceFAZolin 3 GM in SODIUM CHLORIDE 0.9% 100 ML IVPB SCH (22:41)
[2023-10-03 13:44] LABS: Basophils % (A) 0 %; Eosinophils # (A) 0.1 k/uL (0-0.7); Eosinophils % (A) 1 %; HCT 31.9 % (34.0-46.0); Hypochromasia Slight; Lymphocytes # (A) 1.5 k/uL (1.0-4.8); Lymphocytes % (A) 11 %; MCH 26.3 pg (25.0-35.0); MCHC 31.4 g/dL (31.0-37.0); MCV 83.8 fL (80.0-100.0); Mean Platelet Volume 7.4; Monocytes # (A) 0.8 k/uL (0-1.0); Monocytes % (A) 6 %; Neutrophils # (A) 11.3 k/uL (1.3-7.7); Neutrophils % (A) 82 %; Platelet Count 390 k/uL (150-450); RBC 3.81 m/uL (3.80-5.40); RDW 14.5 % (11.5-15.5); WBC 13.8 k/uL (3.8-10.6)
[2023-10-03] MEDS: ACETAMINOPHEN TAB 500 MG TAB PO SCH (18:52)
[2023-10-03] MEDS: SODIUM CHLORIDE 0.9% 2,000 ML IV ONE (18:52)
--- NOTE | 2023-10-03 19:26 | P.PN ---
Subjective Progress Note Date: 10/03/23 CHIEF COMPLAINT: Morbid obesity HISTORY OF PRESENT ILLNESS: The patient is a 28-year-old female status post gastric bypass. Patient reports moderate abdominal pain especially with abdominal binder. She reports dark urine. She had a bowel movement. No further dizziness. Her pain is controlled with fentanyl EQUIPMENT INSTALLATION PROFESSIONAL. She reports low oral intake. She had fevers last night now improved. Tachycardia resolved. Fevers improved after use of incentive spirometer. ROS: No reports of nausea and vomiting. No new chest pain. No productive sputum PHYSICAL EXAM: VITAL SIGNS: Reviewed CONSTITUTIONAL: Well developed and in no acute distress. EYES: Conjuctivae without sclera icterus. Extraocular movements grossly intact. HEAD, EARS, NOSE, THROAT: Moist buccal mucosa. Head is atraumatic, normocephal ic. Hears conversational speech. No nasal drainage. RESPIRATORY: Non-labored respirations and equal bilateral excursions. CARDIOVASCULAR: Palpable 2+ radial pulses. ABDOMEN: Obese. Incisions clean dry intact. Abdominal binder open. No signs of infection. MUSCULOSKELETAL: No gross deformity of the lower extremities noted. No clubbing. No cyanosis. SKIN: Good skin turgor. Well perfused. NEUROLOGIC: Cranial nerves II through XII grossly intact. No focal or lateralizing signs. PSYCH: Appropriate affect. Alert and oriented to person, place and time. CLINICAL LABS: Reviewed. WBC down to 17,000-13,000. Potassium 5.0. Labs reviewed with decreased WBC. ASSESSMENT: 1. Morbid obesity due to excess calories 2. Body mass index of 70.2 to 64.9 3. Osteoarthritis of the knees. 4. Osteoarthritis of the lower back. 5. Depressive disorder 6. Obstructive sleep apnea 7. Generalized anxiety disorder 8. Posttraumatic stress disorder 9. Depressive disorder 10. Bipolar disorder 11. Hepatomegaly with fatty liver disease PLAN: 1. Patient counseled to expect dark stools consistent with recent surgery. 2. Recommend IV fluid bolus 2 L for dehydration. 3. Flexeril started for pain management including scheduled Tylenol. 4. Continue EQUIPMENT INSTALLATION PROFESSIONAL up until discharge. 5. Abdominal binder unbuckled. 6. Patient encouraged to use spirometer for atelectasis. 7. Anticipated discharge in 24 hours. Objective - Vital Signs Vital signs: Vital Signs Temp 98.5 F 10/03/23 14:00 Pulse 90 10/03/23 16:57 Resp 17 10/03/23 14:00 BP 141/92 10/03/23 14:00 Pulse Ox 94 L 10/03/23 14:00 FiO2 Intake & Output 10/02/23 10/03/23 10/03/23 18:59 06:59 18:59 Intake Total 700 Output Total 1225 Balance -1225 700 Weight 172.37 kg Intake: Oral 700 Output: Urine 1225 Other: Voiding Method Toilet # Voids 1 3 - Labs CBC & Chem 7: 10/03/23 13:20 10/02/23 04:39 Labs: Abnormal Lab Results - Last 24 Hours (Table) 10/03/23 Range/Units 13:20 WBC 13.8 H (3.8-10.6) k/uL Hgb 10.0 L (11.4-16.0) gm/dL Hct 31.9 L (34.0-46.0) % Neutrophils # 11.3 H (1.3-7.7) k/uL
--- NOTE | 2023-10-03 19:26 | P.PN ---
Subjective Progress Note Date: 10/02/23 has fever, has pain, studies negative for leak or obstruction. Reports urinary retention. pain from surgery. Patient had fevers. Continue hospitalization Objective - Vital Signs Vital signs: Vital Signs Temp 99.7 F H 10/02/23 20:00 Pulse 84 10/02/23 22:24 Resp 18 10/02/23 20:00 BP 130/89 10/02/23 20:00 Pulse Ox 95 10/02/23 20:00 FiO2 Intake & Output 10/02/23 10/02/23 10/03/23 06:59 18:59 06:59 Output Total 1225 Balance -1225 Weight 172.37 kg Output: Urine 1225 Other: Voiding Method Toilet Toilet # Voids 4 - Labs CBC & Chem 7: 10/03/23 13:20 10/02/23 04:39 Labs: Abnormal Lab Results - Last 24 Hours (Table) 10/02/23 10/02/23 Range/Units 04:39 04:39 WBC 17.70 H (4.50-10.00) X 10*3/uL Hgb 11.4 L (12.0-15.0) g/dL Hct 35.1 L (37.2-46.3) % MCV 79.1 L (80.0-97.0) FL MCH 25.7 L (27.0-32.0) pg Plt Count 516 H (140-440) X 10*3/uL MPV 9.3 L (9.5-12.2) FL Immature Gran # 0.10 H (0.00-0.04) X 10*3/uL Neutrophils # 15.21 H (1.80-7.70) X 10*3/uL Monocytes # 1.24 H (0.20-1.00) X 10*3/uL Eosinophils # 0 L (0.04-0.35) X 10*3/uL Carbon Dioxide 19.9 L (21.6-31.8) mmol/L Anion Gap 12.10 H (4.00-12.00) mmol/L
[2023-10-03] MEDS: CYCLOBENZAPRINE 10 MG TAB PO SCH (21:19)
[2023-10-04 09:41] LABS: BUN/Creat Ratio 14.83 Ratio (12.00-20.00); Blood Urea Nitrogen 8.9 mg/dL (9.0-27.0); Calcium 7.9 mg/dL (8.7-10.3); Carbon Dioxide 23.4 mmol/L (21.6-31.8); Chloride 105 mmol/L (96-109); Glucose 82 mg/dL (70-110); Potassium 4.3 mmol/L (3.5-5.5); Sodium 138 mmol/L (135-145)
[2023-10-04 09:50] LABS: Basophils # (A) 0.03 X 10*3/uL (0.00-0.10); Basophils % (A) 0.3 %; Eosinophils % (A) 0.9 %; HCT 27.2 % (37.2-46.3); HGB 8.3 g/dL (12.0-15.0); Lymphocytes # (A) 2.02 X 10*3/uL (0.90-5.00); Lymphocytes % (A) 18.7 %; MCH 26.1 pg (27.0-32.0); MCHC 30.5 g/dL (32.0-37.0); MCV 85.5 FL (80.0-97.0); Mean Platelet Volume 9.6 FL (9.5-12.2); Monocytes % (A) 6.5 %; NRBC Per 100 WBC 0 X 10*3/uL (0.00-0.01); Neutrophils % (A) 73.1 %; Platelet Count 326 X 10*3/uL (140-440); RBC 3.18 X 10*6/uL (4.10-5.20); RDW 14.4 % (11.5-14.5)
--- NOTE | 2023-10-04 15:26 | P.DS ---
Providers Date of admission: 10/01/23 06:45 Expected date of discharge: 10/04/23 Attending physician: Kia Hines Primary care physician: Arlene Noble MD Hospital Course: Discharge diagnosis 1. Morbid obesity due to excess calories 2. Body mass index of 70.2 to 64.9 3. Osteoarthritis of the knees. 4. Osteoarthritis of the lower back. 5. Depressive disorder 6. Obstructive sleep apnea 7. Generalized anxiety disorder 8. Posttraumatic stress disorder 9. Depressive disorder 10. Bipolar disorder 11. Hepatomegaly with fatty liver disease Hospital course Nano Dodd is a 28-year-old female who comes with lifelong morbid obesity. She is status post Robotic assisted da Cofmort Xi laparoscopic Jemima-en-Y gastric bypass. Her upper GI shows no evidence of any leak or obstruction. She is tolerating diet. Her pain is controlled. She has been up and ambulating. She is having bowel movements. She is afebrile. Her white count is trending down. She denies any difficulty urinating. She is stable for discharge. Physician Linux System Administrator note has been reviewed by physician. Signing provider agrees with the documented findings, assessment, and plan of care. Patient Condition at Discharge: Stable Plan - Discharge Summary Discharge Rx Participant: No New Discharge Prescriptions: New Cyclobenzaprine [Flexeril] 10 mg PO TID #30 tab Simethicone 40 mg/0.6 ml Drops [Mylicon Drops] 40 mg PO PCHS PRN #30 ml PRN Reason: Gas Omeprazole [PriLOSEC] 40 mg PO DAILY #30 cap bisacodyL [Dulcolax] 5 mg PO DAILY PRN #10 tab PRN Reason: Constipation Ondansetron Odt [Zofran Odt] 4 mg PO Q8HR PRN #9 tab PRN Reason: Nausea Acetaminophen Tab [Tylenol Tab] 1,000 mg PO Q6HR PRN #30 tablet PRN Reason: Pain Continue Semaglutide [Wegovy] 0.25 mg SQ MO Sennosides [Ex-Lax Chew] 15 mg PO DAILY PRN PRN Reason: Constipation Discontinued Ibuprofen 800 mg PO Q8H PRN PRN Reason: Pain Discharge Medication List Semaglutide [Wegovy] 0.25 mg SQ MO 06/14/23 [History] Sennosides [Ex-Lax Chew] 15 mg PO DAILY PRN 10/01/23 [History] Acetaminophen Tab [Tylenol Tab] 1,000 mg PO Q6HR PRN #30 tablet 10/04/23 [Rx] Cyclobenzaprine [Flexeril] 10 mg PO TID #30 tab 10/04/23 [Rx] Omeprazole [PriLOSEC] 40 mg PO DAILY #30 cap 10/04/23 [Rx] Ondansetron Odt [Zofran Odt] 4 mg PO Q8HR PRN #9 tab 10/04/23 [Rx] Simethicone 40 mg/0.6 ml Drops [Mylicon Drops] 40 mg PO PCHS PRN #30 ml 10/04/23 [Rx] bisacodyL [Dulcolax] 5 mg PO DAILY PRN #10 tab 10/04/23 [Rx] [facility](s[facility] [facility] [place] [place]10[facility]23 2:00 pm Patient Instructions/Handouts: Nutrition after Bariatric Surgery (GEN), Jemima-en-Y Gastric Bypass (GEN) Activity/Diet/Wound Care/Special Instructions: Liquid diet only for 2 weeks until October 14August Shower. No soaking in bath tubs 2 weeks until October 14 Continue to use incentive spirometry to prevent pneumonias. Please continue to ambulate at home to prevent blood clots in legs. Please notify your surgeon if you develop nausea and vomiting including new onset of abdominal pain. No lifting over 4 pounds in 4 weeks, October 30 Drink 64 oz of fluid daily. Start protein shakes on . Notify bariatric center for temp over 101.0, increased pain, drainage from incisions. No straws or carbonated beverages. Liquid diet only. Sugar content should be less than 6 g to avoid dumping syndrome. Take MOM for constipation. CRUSH, OPEN, OR CUT TABLETS LARGER THAN A SIZE OF A TIC TAC Discharge Disposition: HOME SELF-CARE
[2023-10-04 16:39] VITALS: BP 119/80; PULSE 104; RESP 19
[2023-10-04 16:56] VITALS: TEMP 98.2
== END 2023-10-04 18:51 | disposition home or self-care (01) | DRG 403 ==
LOC: 2ORMAIN 06:45 → 4SSUR 17:10
PROVIDERS: ADMIT Surgery Plastic and Reconstructive Surgery; ATTEND Surgery Plastic and Reconstructive Surgery
PROC: 0D164ZA Bypass Stomach to Jejunum, Percutaneous Endoscopic Approach (ICD-10-PCS; principal; 2023-10-01 08:45)
PROC: 8E0W4CZ Robotic Assisted Procedure of Trunk Region, Percutaneous Endoscopic Approach (ICD-10-PCS; principal; 2023-10-01 08:45)
PROC: 0DJ08ZZ Inspection of Upper Intestinal Tract, Via Natural or Artificial Opening Endoscopic (ICD-10-PCS; principal; 2023-10-01 08:45)
DX: E66.01 Morbid (severe) obesity due to excess calories (principal); G47.33 Obstructive sleep apnea (adult) (pediatric); F43.10 Post-traumatic stress disorder, unspecified; F41.1 Generalized anxiety disorder; F31.9 Bipolar disorder, unspecified; M47.819 Spondylosis without myelopathy or radiculopathy, site unspecified; K66.0 Peritoneal adhesions (postprocedural) (postinfection); K76.0 Fatty (change of) liver, not elsewhere classified; M17.0 Bilateral primary osteoarthritis of knee; Z87.891 Personal history of nicotine dependence; Z68.44 Body mass index [BMI] 60.0-69.9, adult
CPT/HCPCS: 74240; 80048; 80051; 81025; 82310; 82565; 83735; 84100; 84520; 85025; 94640; 94760; 94762

== ENCOUNTER → 2024-02-13 | Outpatient (CLI) | payer OTHER ==
[2024-02-13 16:20] LABS: Partial Thromboplastin Time 27.4 sec (22.0-30.0)
[2024-02-13 18:29] LABS: HCT 36.7 % (37.2-46.3); HGB 12.2 g/dL (12.0-15.0); MCH 27.5 pg (27.0-32.0); MCHC 33.2 g/dL (32.0-37.0); MCV 82.8 FL (80.0-97.0); Mean Platelet Volume 10.3 FL (9.5-12.2); NRBC Per 100 WBC 0 X 10*3/uL (0.00-0.01); Platelet Count 338 X 10*3/uL (140-440); RBC 4.43 X 10*6/uL (4.10-5.20); RDW 14.7 % (11.5-14.5); WBC 9.21 X 10*3/uL (4.50-10.00)
[2024-02-13 23:22] LABS: Prealbumin 11.1 mg/dL (18.0-42.0)
[2024-02-13 23:40] LABS: % Iron Saturation 20.89 (12.00-45.00); BUN/Creat Ratio 15.17 Ratio (12.00-20.00); Blood Urea Nitrogen 9.1 mg/dL (9.0-27.0); Chloride 104 mmol/L (96-109); Chol/HDL Ratio 3.88 Ratio; Glucose 87 mg/dL (70-110); Iron 66 UG/DL (50-170); LDL Cholesterol,Calculated 68.3 mg/dL (0.0-131.0); Magnesium 1.6 mg/dL (1.5-2.4); Phosphorus 3.8 mg/dL (2.4-5.1); Potassium 3.3 mmol/L (3.5-5.5); Sodium 143 mmol/L (135-145); Total Iron Binding Capacity 316 UG/DL (228-460)
[2024-02-13 23:41] LABS: ALT 13 U/L (8-44); AST 18 U/L (13-35); Albumin/Globulin Ratio 1.54 Ratio (1.60-3.17); Alkaline Phosphatase 51 U/L (41-126); Calcium 9.3 mg/dL (8.7-10.3); Carbon Dioxide 24.2 mmol/L (21.6-31.8); Ferritin 48.7 ng/mL (10.0-291.0); Globulin 2.6 g/dL (1.6-3.3); Total Bilirubin 1.5 mg/dL (0.3-1.2); Total Protein 6.6 g/dL (6.2-8.2)
[2024-02-14 15:53] LABS: Zinc, Serum 59 ug/dL (60-130)
[2024-02-15 07:47] LABS: Vitamin A 25 ug/dL (38-106)
[2024-02-15 15:09] LABS: Vit B1(Thiamine) 40 ug/L (38-122)
== END | disposition home or self-care (01) ==
LOC: LABWHC1 15:10
PROVIDERS: ATTEND Surgery Plastic and Reconstructive Surgery
CPT/HCPCS: 36415; 80053; 80061; 82306; 82525; 82607; 82728; 82746; 83036; 83540; 83550; 83735; 83970; 84100; 84134; 84255; 84425; 84443; 84590; 84630; 85027; 85610; 85730

== ENCOUNTER → 2024-02-13 | Outpatient (CLI) | payer OTHER ==
[2024-02-13 14:29] VITALS: BMI 53.1
[2024-02-13 14:36] VITALS: BP 147/101; RESP 16; TEMP 98.5
[2024-02-13 14:37] VITALS: PULSE 73
--- NOTE | 2024-02-13 14:59 | P.BASOAP ---
Subjective Progress Note Date: 02/13/24 She lost 100 pounds 10 pounds. She has smoked in the past. She may take her marijuana. One meal a day only. She throws up in the morning. She had potato balls mash potatoes, banana, pizza slice. Protein shake 11 am. Hair is not falling out. She is throwing up chicken, mash potatoes, and may be a stricture. Last time cannibus. Upper scope and labs described. SHe has a gastric bypass. Objective - Vital Signs Vital signs: Vital Signs Temp 98.5 F 02/13/24 14:20 Pulse 73 02/13/24 14:20 Resp 16 02/13/24 14:20 BP 147/101 02/13/24 14:20 Pulse Ox FiO2 Intake & Output 02/12/24 02/13/24 02/13/24 18:59 06:59 18:59 Weight 144.696 kg Assessment/Plan Plan: Date: 02/13/24 Initial Weight: 191.218 kg Initial BMI: 70.1 Current Weight: 144.696 kg Current BMI: 53.1 Type of Surgery: Total Volume in Band: Previous Volume: Volume Removed: Volume Added: Band Size:
== END ==
LOC: BARWHC3 13:05
PROVIDERS: ATTEND Surgery Plastic and Reconstructive Surgery
DX: E66.01 Morbid (severe) obesity due to excess calories (principal); Z71.3 Dietary counseling and surveillance; Z88.1 Allergy status to other antibiotic agents; Z68.41 Body mass index [BMI] 40.0-44.9, adult
CPT/HCPCS: 97803; G0463; 99211

== ENCOUNTER → 2024-05-28 | Outpatient (CLI) | payer OTHER ==
[2024-05-28 13:25] VITALS: BP 128/92; PULSE 76; RESP 16; TEMP 98.2; BMI 46.7
--- NOTE | 2024-05-28 13:36 | P.BASOAP ---
Subjective Progress Note Date: 05/28/24 DATE OF SERVICE: 05/28/24 CHIEF COMPLAINT: Morbid obesity HISTORY OF PRESENT ILLNESS: Nano Dodd is a 29-year-old female status post gastric bypass 10/01/2023. She is 7 months postop. She reports troubles with her breast size. Her cup size has not changed with weight loss. She wants moderate reduction of her breast tissue. She lost 140 pounds and is still losing. She reports GGG bra size. She is off all medications. She has troubles swallowing pills. She reports tolerating eating spinach. Her vision is getting worse despite pre-existing eye disease. She has corneal trouble. She is not ta carmela any blood pressure medications. At height of 5 feet 5 inches, her ideal body weight is 149 pounds. She was 422 pounds. Her body mass index is 70.2. Her highest weight is 450 pounds and body mass index 75.0. She was 273 pounds overweight. Today she comes in 281 pounds, BMI 46.8. Lifetime weight loss 169 pounds. Lifetime percent excess weight loss of 56%. She is 132 pounds overweight. He has lost 30 pounds in 4 months. PAST MEDICAL HISTORY: 1. Morbid obesity due to excess calories 2. Body mass index of 70.2 3. Osteoarthritis of the knees. 4. Osteoarthritis of the lower back. 5. Depressive disorder PAST SURGICAL HISTORY: 1. Bilateral eye surgeries 2. Status post gastric bypass 10/01/2023 HOME MEDICATIONS: Home Medications Medication Instructions Recorded Confirmed Ibuprofen [Motrin] 800 mg PO Q8H PRN 05/09/23 05/09/23 Vilazodone HCl 20 mg PO DAILY 05/09/23 05/09/23 ALLERGIES: Allergies Allergy/AdvReac Type Severity Reaction Status Date / Time duloxetine AdvReac Unknown Verified 05/09/23 16:00 SOCIAL HISTORY: No current tobacco use. FAMILY HISTORY: No family history of ulcerative colitis disease or Crohn's disease. Family history of morbid obesity. No lupus in the family. No reports of stomach or esophageal cancer. REVIEW OF ORGAN SYSTEMS: CONSTITUTIONAL: At height of 5 feet 5 inches, her ideal body weight is 149 pounds. She was 422 pounds. Her body mass index is 70.2. Her highest weight is 450 pounds and body mass index 75.0. She was 273 pounds overweight. Today she comes in 281 pounds, BMI 46.8. Lifetime weight loss 169 pounds. Lifetime percent excess weight loss of 56%. She is 132 pounds overweight. He has lost 30 pounds in 4 months. HEENT: Denies any active troubles with hearing. ENDOCRINE: Denies diabetes. No hypothyroidism. CARDIOVASCULAR: Denies past reports of palpitations or heart attacks or chest pain. Resolved hypertensive heart disease. RESPIRATORY: Has daytime somnolence. Has asthma. Denies chronic obstructive pulmonary disease. GASTROINTESTINAL: Denies any bright red blood per rectum. No diarrhea. No constipation. Resolved gastroesophageal reflux disease. GENITOURINARY: Denies bladder urgency. No recent blood in urine MUSCULOSKELETAL: Has lower back pain and joint pain. Has osteoarthritis of the knees. History of bilateral lower extremity edema. NEURO: No headaches. No seizure disorders. PSYCH: Has depression. No suicidal ideation. RHEUMATOLOGIC: No lupus. No rheumatoid arthritis. HEMATOLOGIC: Denies any abnormal bleeding or bruising. SKIN: No rash. No skin cancer. PHYSICAL EXAM: VITAL SIGNS: Height 5 foot 5 inches, weight 267 pounds. BMI 46.8 Vital Signs Temp 98.2 F 05/28/24 13:16 Pulse 76 05/28/24 13:16 Resp 16 05/28/24 13:16 BP 128/92 05/28/24 13:16 Pulse Ox FiO2 GENERAL: Well-developed in no acute distress. HEENT: No scleral icterus. Extraocular movements grossly intact. Hears conversational speech. No nasal drainage. NECK: Supple without lymphadenopathy. CHEST: Nonlabored respirations with equal bilateral excursions. CARDIOVASCULAR: Tachycardic. Distal 2+ pulses. ABDOMEN: Obese, soft, nontender, nondistended. No incisional hernias. MUSCULOSKELETAL: No clubbing, cyanosis. NEURO: No focal or lateralizing signs. Cranial nerves 2 through 12 grossly within normal limits. PSYCH: Appropriate affect. Alert and oriented to person, place and time. SKIN: Good skin turgor. Well perfused. LABS: CBC within normal limits. Iron low. Prealbumin low. Vitamin A low. Vitamin D severely deficient. Folate low. Zinc low. ASSESSMENT: 1. Morbid obesity due to excess calories 2. Body mass index of 70.2 to 46.8 3. Osteoarthritis of the knees. 4. Osteoarthritis of the lower back. 5. Depressive disorder 6. Status post gastric bypass 7. Iron deficiency 8. Vitamin D deficiency 9. Vitamin A deficiency 10. Folate deficiency 11. Zinc deficiency 12. Dietary surveillance and counseling 13. Global malnutrition 14. Macromastia 15. Dysphagia PLAN: 1. Bariatric labs were ordered. Findings demonstrate multiple vitamin deficiencies as patient needs moderate supplementation. 2. Recommend vitamin D supplement 50,000 units weekly including daily suppleme ntation 3. Recommend iron oral supplement including IV supplementation due to global malnutrition 4. Zinc supplement 50 mg daily 5. Folate supplement 1000 mcg daily 6. Vitamin A supplement 10,000 international units daily 7. Protein intake at least 75 to 80 g daily 8. Due to patient complaining of dysphagia, upper endoscopy with balloon dilation described which she is elevated risk. 9. She has trouble swallowing pills. EGD advised with rigid and balloon dilation. 10. She also reports troubles getting iron and recommend eating spinach three times daily including IV supplement. 11. Recommend seeing plastic surgeon for breast reduction for which she is elevated risk Objective - Vital Signs Vital signs: Vital Signs Temp 98.2 F 05/28/24 13:16 Pulse 76 05/28/24 13:16 Resp 16 05/28/24 13:16 BP 128/92 05/28/24 13:16 Pulse Ox FiO2 Intake & Output 05/27/24 05/28/24 05/28/24 18:59 06:59 18:59 Weight 127.459 kg - Labs CBC & Chem 7: 05/28/24 13:50 05/28/24 13:50 Assessment/Plan Plan: Date: 05/28/24 Initial Weight: 191.218 kg Initial BMI: 70.1 Current Weight: 127.459 kg Current BMI: 46.7 Type of Surgery: Total Volume in Band: Previous Volume: Volume Removed: Volume Added: Band Size:
[2024-05-28 15:11] LABS: Partial Thromboplastin Time 28.1 sec (22.0-30.0); Prothrombin Time 10.8 sec (10.0-12.5)
[2024-05-28 18:14] LABS: HCT 40.1 % (37.2-46.3); HGB 12.8 g/dL (12.0-15.0); MCH 26.9 pg (27.0-32.0); MCHC 31.9 g/dL (32.0-37.0); MCV 84.4 FL (80.0-97.0); Mean Platelet Volume 10.5 FL (9.5-12.2); NRBC Per 100 WBC 0 X 10*3/uL (0.00-0.01); Platelet Count 480 X 10*3/uL (140-440); RBC 4.75 X 10*6/uL (4.10-5.20); RDW 12.5 % (11.5-14.5); WBC 7.56 X 10*3/uL (4.50-10.00)
[2024-05-28 18:45] LABS: % Iron Saturation 11.94 (12.00-45.00); ALT 11 U/L (8-44); AST 12 U/L (13-35); Albumin 4.1 g/dL (3.8-4.9); Albumin/Globulin Ratio 1.58 Ratio (1.60-3.17); Alkaline Phosphatase 62 U/L (41-126); BUN/Creat Ratio 22.17 Ratio (12.00-20.00); Blood Urea Nitrogen 13.3 mg/dL (9.0-27.0); Calcium 9.5 mg/dL (8.7-10.3); Carbon Dioxide 23.3 mmol/L (21.6-31.8); Chloride 101 mmol/L (96-109); Chol/HDL Ratio 3.57 Ratio; Ferritin 32.5 ng/mL (10.0-291.0); Globulin 2.6 g/dL (1.6-3.3); Glucose 87 mg/dL (70-110); Iron 45 UG/DL (50-170); LDL Cholesterol,Calculated 69.6 mg/dL (0.0-131.0); Magnesium 1.6 mg/dL (1.5-2.4); Phosphorus 3.6 mg/dL (2.4-5.1); Potassium 3.7 mmol/L (3.5-5.5); Sodium 137 mmol/L (135-145); Total Bilirubin 1.2 mg/dL (0.3-1.2); Total Iron Binding Capacity 377 UG/DL (228-460); Total Protein 6.7 g/dL (6.2-8.2)
[2024-05-29 15:27] LABS: Zinc, Serum 53 ug/dL (60-130)
[2024-05-30 07:19] LABS: Vit B1(Thiamine) 56 ug/L (38-122)
[2024-05-30 07:24] LABS: Vitamin A 30 ug/dL (38-106)
[2024-06-04 10:37] LABS: Selenium 75 mcg/L (63-160)
== END ==
LOC: BARWHC3 13:07
PROVIDERS: ATTEND Surgery Plastic and Reconstructive Surgery
DX: E66.01 Morbid (severe) obesity due to excess calories (principal); F32.9 Major depressive disorder, single episode, unspecified; E61.1 Iron deficiency; E50.9 Vitamin A deficiency, unspecified; E55.9 Vitamin D deficiency, unspecified; E60 Dietary zinc deficiency; N62 Hypertrophy of breast; E53.8 Deficiency of other specified B group vitamins; E46 Unspecified protein-calorie malnutrition; M17.0 Bilateral primary osteoarthritis of knee; M47.816 Spondylosis without myelopathy or radiculopathy, lumbar region; R13.10 Dysphagia, unspecified; Z88.8 Allergy status to other drugs, medicaments and biological substances; Z68.45 Body mass index [BMI] 70 or greater, adult; Z98.84 Bariatric surgery status
CPT/HCPCS: 84255; 84425; 80061; 80053; 82607; 82728; 82525; 82746; 83540; 83550; 83735; 84100; 84443; 84590; 84630; 85027; 85610; 85730; 82306; 83970; 83036; G0463; 99211